=== PATIENT | male | born 1980 | race Hispanic/Latino ===

== ENCOUNTER 2017-10-23 19:04 | Emergency (ER) | payer SELFPAY ==
[2017-10-23 19:47] LABS: Bilirubin Negative (Negative); Blood, Urine Moderate (Negative); Glucose, Urine (Dipstick) Negative (Negative); Ketone, Urine Negative (Negative); Nitrite Negative (Negative); Protein, Urine (Dipstick) Negative (Neg-Trace); Urobilinogen 0.2 mg/dL (0.2-1.0)
[2017-10-23 19:50] LABS: Bacteria/HPF Rare-Few HPF (None Seen); Hyaline Casts/LPF 4-6 HYALINE CAST LPF (0-3 Hyaline); Squamous Epithelial 0-3 HPF (0-3)
[2017-10-23 20:03] LABS: Sperm/HPF None Seen HPF (None Seen); Trichomonas/HPF None Seen HPF (None Seen); Yeast-All Forms None Seen HPF (None Seen)
[2017-10-23] MEDS ORDERED: Azithromycin 250 MG TAB ONE (20:44)
[2017-10-23] MEDS ORDERED: cefTRIAXone\\ROCEPHIN 250 MG VIAL ONE (20:44)
[2017-10-23] MEDS ORDERED: Lidocaine 1% PF 5 ML VIAL ONE (20:44)
== END 2017-10-23 21:07 | disposition home or self-care (01) ==
LOC: ERS 19:04
DX: N34.2 Other urethritis (principal); F17.210 Nicotine dependence, cigarettes, uncomplicated
CPT/HCPCS: 81003; 81015; 87086; 87491; 87591; 96372; 99406; J0696; J2001

== ENCOUNTER 2019-07-07 22:40 | Emergency (ER) | payer SELFPAY ==
[2019-07-07 23:03] LABS: #Eosinphils 0.1 thou/uL (0.0-0.7); #Lymphocytes 2.6 thou/uL (1.20-3.40); #Monocytes 0.4 thou/uL (0.11-0.59); #Neutrophils 4.8 thou/uL (1.40-6.50); %Basophils 0.4 % (0.0-1.0); %Eosinophils 1.5 % (0.0-10.0); %Lymphocytes 32.7 % (21.0-51.0); %Monocytes 5.2 % (0.0-10.0); %Neutrophils 60.2 % (42.0-75.0); Hemoglobin 17.4 g/dL (14.0-18.0); Mean Corpuscular HGB CONC 35.4 g/dL (32.0-36.0); Mean Corpuscular Volume 90.4 fL (78.0-98.0); Mean Platelet Volume 9.1 fL (7.4-10.4); Platelet Count 192 thou/uL (130-400); RBC Distribution Width 11.9 % (11.5-14.5); Red Blood Cell (RBC) Count 5.42 mill/uL (4.70-6.10)
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
[2019-07-07 23:16] LABS: ALT (SGPT) 192 U/L (8-55); AST (SGOT) 109 U/L (5-34); Albumin 4.9 g/dL (3.5-5.0); Alkaline Phosphatase 130 U/L (40-150); Anion Gap 17 mmol/L (10-20); BUN (Urea Nitrogen) 8 mg/dL (8.9-20.6); Bilirubin, Total 0.7 mg/dL (0.2-1.2); Calc. Creatinine Clearance 0 mL/min (70-130); Carbon Dioxide 22 mmol/L (22-29); Chloride 103 mmol/L (98-107); Estimated GFR-MDRD Greater than 90; Globulin 3.7 g/dL (2.4-3.5); Glucose 122 mg/dL (70-105); Potassium 3.7 mmol/L (3.5-5.1); Protein, Total 8.6 g/dL (6.0-8.3); Sodium 138 mmol/L (136-145)
[2019-07-07 23:49] LABS: Bilirubin Negative (Negative); Blood, Urine Negative (Negative); Clarity Clear (Clear); Glucose, Urine (Dipstick) Normal (Negative); Leukocyte Negative Leu/uL (Negative); Nitrite Negative (Negative); Protein, Urine (Dipstick) 10 mg/dL (Neg-Trace); Urobilinogen Normal mg/dL (Less than 2)
[2019-07-07] MEDS ORDERED: Ketorolac Tromethamine 30 MG/ML VIAL ONE (23:52)
== END 2019-07-08 00:56 | disposition home or self-care (01) ==
LOC: ERS 22:40
DX: M54.2 Cervicalgia (principal); R79.89 Other specified abnormal findings of blood chemistry; F17.210 Nicotine dependence, cigarettes, uncomplicated; V43.62XA Car passenger injured in collision with other type car in traffic accident, initial encounter
CPT/HCPCS: 70450; 71045; 72125; 80053; 81003; 85025; 96374; J1885

== ENCOUNTER 2019-08-10 21:46 | Emergency (ER) | payer SELFPAY ==
[2019-08-10] MEDS ORDERED: Ketorolac Tromethamine 30 MG/ML VIAL ONE (22:35)
--- NOTE | 2019-08-10 23:54 | CT ---
Cervical spine CT without contrast: 08/10/2019 COMPARISON: 07/07/2019 HISTORY: Pain TECHNIQUE: Axial CT imaging at 2.5 mm intervals through the cervical spine with coronal and sagittal reformatted imaging Findings the imaged lung apices are unremarkable. The occipital condyles, the dens, the C1-2 articulation, the craniocervical junction, the atlantoaxia l interspace, and the cervicothoracic junction appear unremarkable. Cervical vertebral body height and alignment is normal. No prevertebral soft tissue swelling, fracture, or evidence of dislocation. IMPRESSION: No acute osseous abnormality.
[2019-08-10] MEDS ORDERED: Diazepam 5 MG TAB ONE (23:58)
== END 2019-08-11 00:55 | disposition home or self-care (01) ==
LOC: ERS 21:46
DX: S16.1XXA Strain of muscle, fascia and tendon at neck level, initial encounter (principal); Z71.6 Tobacco abuse counseling; F17.210 Nicotine dependence, cigarettes, uncomplicated; X50.9XXA Other and unspecified overexertion or strenuous movements or postures, initial encounter
CPT/HCPCS: 72125; 96372; 99406; J1885